=== PATIENT | male | born 1965 | race Caucasian/White ===

== ENCOUNTER 2023-02-17 11:04 | Day surgery (SDC) | payer OTHER ==
[2023-02-17] VITALS (41 sets, daily range): BP systolic 111–182; BP diastolic 73–114
[~2023-02-17] VITALS: Ht 172.7 cm; Wt 60.4 kg
[2023-02-17] MEDS ORDERED: CYCL10 PO (12:40)
[2023-02-17] MEDS ORDERED: GABA300 PO (12:40)
[2023-02-17] MEDS ORDERED: Hair, Skin & N1 EACH PO (12:41)
--- NOTE | 2023-02-17 13:58 | NUR ---
02/17/23 1358 Kathi Galeana HISTORY, CHART, MEDICATIONS AND ALLERGIES REVIEWED BEFORE START OF PROCEDURE. PATIENT CONFIRMS NPO STATUS AND AGREES WITH SCHEDULED PROCEDURE. 3-LEAD EKG REVIEWED WITH PHYSICIAN PRIOR TO START OF PROCEDURE. MONITOR INTACT WITH CONTINUOUS PULSE OXIMETRY,CAPNOGRAPHY, 3-LEAD EKG, INTERMITTENT BP. SUPPLEMENTAL O2 TO BE TITRATED THROUGHOUT PROCEDURE TO MAINTAIN O2 SATURATION ABOVE 90%. PATIENT DETERMINED TO BE ASA APPROPRIATE FOR PROPOFOL SEDATION PRIOR TO START OF PROCEDURE BY
--- NOTE | 2023-02-17 15:30 | NUR ---
PT HAS TAKEN SOMETHING TO DRINK. PT TAKEN TO RADIOLOGY VIA GURNEY.
--- NOTE | 2023-02-17 16:10 | NUR ---
Discharge instructions reviewed with patient. Patient verbalizes understanding. Copy given to patient to take home. IV DC'D INTACT. Patient States Post-Procedure ride home has been arranged. Discharged via wheelchair to private car for ride home.
== END 2023-02-17 16:00 | disposition home or self-care (01) ==
LOC: ORSCMMR 11:04 → ORD 12:15 → ORSCMMR 12:15
DX: K62.5 Hemorrhage of anus and rectum (principal); R19.5 Other fecal abnormalities; R15.9 Full incontinence of feces; R15.2 Fecal urgency; K63.5 Polyp of colon; I10 Essential (primary) hypertension; F41.8 Other specified anxiety disorders; Z79.899 Other long term (current) drug therapy; F17.210 Nicotine dependence, cigarettes, uncomplicated
CPT/HCPCS: 71260; 74177; 88305; J2250; J2704; J7120; Q9967

== ENCOUNTER 2024-01-15 11:15 | Inpatient (IN) | payer OTHER ==
[~2024-01-15] VITALS: Ht 172.7 cm; Wt 62.0 kg
[~2024-01-15 11:15] MED LIST: ACET500 PO; BP MED; CYCL10 PO; GABA300 PO; Hair, Skin & N1 EACH PO; IBUP600 PO; MELO7.5; [UNRECOGNIZED DRUG - REMARK]
[2024-01-15 12:09] LABS: Anion Gap 13 mmol/L (3-11); Blood Urea Nitrogen 13 mg/dL (8-24); Bun/Creatinine Ratio 17.5 (12.0-20.0); CO2, Blood 27 mmol/L (21-32); Calcium, Blood 8.6 mg/dL (8.5-10.1); Chloride, Blood 80 mmol/L (98-108); Creatinine, Blood 0.74 mg/dL (0.60-1.20); Ethanol (Alcohol), Blood, Med <3 mg/dL; Glomerular Filtration Rate 104 (60-); Glucose, Blood 83 mg/dL (70-99); Magnesium, Blood 2.1 mg/dL (1.6-2.4); Potassium, Blood 5.1 mmol/L (3.5-5.5)
[2024-01-15 12:11] LABS: Sodium, Blood 115 mmol/L (136-145)
[2024-01-15 12:30] LABS: Osmolality, Serum 239 mos/KG (275-300)
[2024-01-15 12:39] LABS: Source, Urine Clean Catch
[2024-01-15] MEDS ORDERED: Sodium Chloride 3% 500 ML IV ONE (12:45)
[2024-01-15 12:47] LABS: BASOPHILS ABSOLUTE AUTO 0.05 K/mm3 (0.00-0.23); BASOPHILS PERCENT AUTO 1 % (0-2); EOSINOPHILS ABSOLUTE AUTO 0.03 K/mm3 (0.00-0.68); EOSINOPHILS PERCENT AUTO 0 % (0-6); Hematocrit 40.6 % (37.0-53.0); IMMATURE GRAN PERCENT AUTO 1 % (0-1); LYMPHOCYTES ABSOLUTE AUTO 1.94 K/mm3 (0.84-5.20); LYMPHOCYTES PERCENT AUTO 22 % (21-46); MONOCYTES ABSOLUTE AUTO 1.04 K/mm3 (0.16-1.47); MONOCYTES PERCENT AUTO 12 % (4-13); Mean Corpuscular Volume 88 fL (80-100); Mean Platelet Volume 9.7 fL (9.1-12.4); NEUTROPHILS ABSOLUTE AUTO 5.73 K/mm3 (1.96-9.15); NEUTROPHILS PERCENT AUTO 65 % (41-73); Platelet Count 292 K/mm3 (150-400); RDW Coefficient Variation 11.8 % (11.7-14.2); RDW Standard Deviation 37.7 fL (35.1-46.3); White Blood Cell Count 8.89 K/mm3 (4.00-11.30)
[2024-01-15 12:54] LABS: Appearance, Urine Clear (Clear); Bilirubin, Urine Neg (Neg); Blood, Urine 2+ (Neg); Color, Urine Yellow (P-Yellow); Glucose Qualitative, Urine Neg (Neg); Ketones, Urine 2+ (Neg); Leukocyte Esterase, Urine Neg (Neg); Nitrite, Urine Neg (Neg); Protein, Urine Neg (Neg); Specific Gravity, Urine 1.005 (1.003-1.022); Urobilinogen, Urine NORM (Normal)
[2024-01-15 13:11] LABS: Bacteria Rare /hpf; Squamous Epithelial Cells Not Seen /hpf (Few); White Blood Cells, Urine 0-2 /hpf (0-5)
[2024-01-15 13:43] LABS: Sodium, Urine, Random 41 mmol/L (20-110)
[2024-01-15 14:06] LABS: Osmolality, Urine 185 mos/kg (15-1400)
[2024-01-15] MEDS ORDERED: Ondansetron HCl 2 MG / ML 2ML Vial IV PRN (14:15)
[2024-01-15] MEDS ORDERED: Nicotine 14 MG PATCH TOP PRN (14:15)
[2024-01-15] MEDS ORDERED: Acetaminophen 325 MG TABLET PO PRN (14:15)
[2024-01-15] MEDS ORDERED: LORazepam 2 MG/ML 1ML Injection IV PRN ×3 (15:00→15:05)
[2024-01-15] MEDS ORDERED: ChlordiazePOXIDE 25 MG Cap PO PRN ×2 (15:05)
[2024-01-15 15:48] LABS: Bun/Creatinine Ratio 17.6 (12.0-20.0); Calcium, Blood 8.6 mg/dL (8.5-10.1); Creatinine, Blood 0.85 mg/dL (0.60-1.20); Potassium, Blood 3.8 mmol/L (3.5-5.5)
[2024-01-15] MEDS ORDERED: Sodium Chloride 1 GM TAB PO SCH (16:05)
[2024-01-15 17:09] LABS: Albumin, Blood 3.8 g/dL (3.4-5.0); Anion Gap 10 mmol/L (3-11); Blood Urea Nitrogen 14 mg/dL (8-24); Bun/Creatinine Ratio 16.1 (12.0-20.0); CO2, Blood 29 mmol/L (21-32); Calcium, Blood 8.7 mg/dL (8.5-10.1); Chloride, Blood 83 mmol/L (98-108); Creatinine, Blood 0.87 mg/dL (0.60-1.20); Glomerular Filtration Rate 99 (60-); Glucose, Blood 116 mg/dL (70-99); Phosphorus, Blood 2.6 mg/dL (2.5-4.9); Potassium, Blood 3.9 mmol/L (3.5-5.5); Sodium, Blood 118 mmol/L (136-145)
[2024-01-15 18:10] VITALS: BP 127/91
[2024-01-15] MEDS ORDERED: HYDCHL25 PO (18:20)
[2024-01-15] MEDS ORDERED: Diclofenac Sodi50 MG PO (18:20)
[2024-01-15] MEDS ORDERED: PRAZ1 PO (18:21)
[2024-01-15] MEDS ORDERED: LISI20 PO (18:21)
[2024-01-15] MEDS ORDERED: TAMS.4ER PO (18:21)
[2024-01-15] MEDS ORDERED: TraZODone HCl 50 MG Tab PO PRN (19:00)
--- NOTE | 2024-01-15 19:10 | NUR ---
SHIFT SUMMARY AND ARRIVAL TO UNIT: PATIENT ARRIVED TO THE UNIT AT 1800. PATIENT ALERT AND ORIENTED X4. PATIENT STEADY ON FEET. PATIENT REPORTS SIGNIFICANT LOSS OF WEIGHT AND STRENGTH OVER THE LAST 3 YEARS (REPORTS HE USED TO BE ABOUT 185LBS AND IS NOW 135 LBS PER THE BED WEIGHT). PATIENT'S AT BEDSIDE. SHE IS ENCOURAGING AND HELPFUL WITH THE PATIENT. PATIENT IS CALM AND COOPERATIVE. NO SIGNS OF ALCOHOL WITHDRAWL AT THIS TIME. NEURO: PATIENT REPORTS NUMBNESS/TINGLING IN BUE RELATED TO BACK PROBLEMS HE REPORTS THAT A BACK SURGERY HELPED INITIALLY, BUT IT NO LONGER HAS. PATIENT REPORTS THAT WHILE HE IS ABLE TO PERFORM ALL ADLS HE STRUGGLES AT TIMES. HE REPORTS THAT AT WORK, HE HAS BEEN FORGETFUL AND AT TIMES CANNOT REMEMBER WHAT HE IS SUPPOSED TO BE DOING. PATIENT IS ANSWERING QUESTIONS APPROPRIATELY AND ABLE TO RECALL INFORMATION AT THIS TIME. PATIENT DENIES PAIN, BUT REPORTS THAT HE HAS BEEN EXPERIENCING DISCOMFORT FOR A "LONG TIME", INCLUDING ABDOMINAL AND THORACIC. CARDIAC: PATIENT ON TELEMETRY. PATIENT VITALS STABLE. PATIENT'S HR IN THE HIGH 50S AND LOW 60S. PATIENT DENIES ACUTE CHEST PAIN. GI/: PATIENT REPORTED THAT THE IV ZOFRAN GIVEN IN THE ED HELPED WITH HIS NAUSEA. PATIENT ABLE TO TOLERATE SOME OF HIS DINNER WITHOUT INCREASED NAUSEA. PATIENT REPORTS DECREASE IN APPETITE FOR MONTHS. PATIENT REPORTS GENERALIZED DISRUPTION TO THIS GI SYSTEM. PATIENT REPORTS RETENTION AND URGENCY WITH VOIDING. PATIENT REPORTS THAT HIS URINE HAS BEEN CONCENTRATED. PSYCHSOCIAL: PATIENT AND HIS EXPRESS CONCERN OVERING LOSING THEIR HOUSE (THEY ARE WEEKS BEHIND ON MORTGAGE AND THAT THEIR ELECTRICITY WILL LIKELY BE CUT OFF) AND THE PATIENT LOSING HIS JOB. THEY ARE DOWN TO ONE CAR THEY CANNOT FIX THE OTHER ONE AT THIS TIME. THEY REPORT THAT THEY HAVE FOOD STAMPS AND THAT THIS HAS BEEN HELPING. THEY ARE KIND AND ENCOURAGING OF EACH OTHER. PATIENT CALM AND COOPERATIVE WITH CARE.
[2024-01-15 19:32] VITALS: BP 124/78
--- NOTE | 2024-01-15 21:28 | NUR ---
REPEAT SODIUM LEVEL 121. MD MATOS CONTACTED. RECEIVED ORDER FOR 2G SODIUM CHLORIDE TABLET PO NOW, FOR A 1L FLUID RESTRICTION, AND TO CALL WITH MORNING LAB RESULTS.
[2024-01-15] MEDS ORDERED: Sodium Chloride 1 GM TAB PO ONE (21:30)
[2024-01-15] MEDS ORDERED: Atarax10 MG PO (22:23)
[2024-01-15] MEDS ORDERED: Robaxin750 MG PO (22:24)
[2024-01-15] MEDS ORDERED: OXYC5 PO (22:26)
[2024-01-15] MEDS ORDERED: TIZA4 PO (22:26)
[2024-01-15 23:20] VITALS: BP 135/82
[2024-01-16 03:00] VITALS: BP 152/71
[2024-01-16 04:04] LABS: BASOPHILS ABSOLUTE AUTO 0.05 K/mm3 (0.00-0.23); BASOPHILS PERCENT AUTO 1 % (0-2); EOSINOPHILS ABSOLUTE AUTO 0.07 K/mm3 (0.00-0.68); EOSINOPHILS PERCENT AUTO 1 % (0-6); Hematocrit 40.7 % (37.0-53.0); Hemoglobin 14.7 g/dL (13.5-17.5); IMMATURE GRAN ABSOLUTE AUTO 0.08 K/mm3 (0.00-0.10); IMMATURE GRAN PERCENT AUTO 1 % (0-1); LYMPHOCYTES ABSOLUTE AUTO 2.09 K/mm3 (0.84-5.20); LYMPHOCYTES PERCENT AUTO 29 % (21-46); MONOCYTES PERCENT AUTO 11 % (4-13); Mean Corpuscular HGB 33.4 pg (26.0-34.0); Mean Corpuscular HGB Conc 36.1 g/dL (31.5-36.5); NEUTROPHILS PERCENT AUTO 58 % (41-73); Platelet Count 276 K/mm3 (150-400); RDW Coefficient Variation 11.9 % (11.7-14.2); RDW Standard Deviation 40.1 fL (35.1-46.3); White Blood Cell Count 7.29 K/mm3 (4.00-11.30)
[2024-01-16 04:06] LABS: Mean Corpuscular Volume 93 fL (80-100)
[2024-01-16 04:35] LABS: Albumin, Blood 3.8 g/dL (3.4-5.0); Anion Gap 11 mmol/L (3-11); Blood Urea Nitrogen 14 mg/dL (8-24); Bun/Creatinine Ratio 14.7 (12.0-20.0); CO2, Blood 29 mmol/L (21-32); Calcium, Blood 8.5 mg/dL (8.5-10.1); Chloride, Blood 88 mmol/L (98-108); Creatinine, Blood 0.95 mg/dL (0.60-1.20); Glomerular Filtration Rate 92 (60-); Glucose, Blood 99 mg/dL (70-99); Magnesium, Blood 2.2 mg/dL (1.6-2.4); Sodium, Blood 124 mmol/L (136-145); Uric Acid, Blood 5.5 mg/dL (3.5-7.2)
--- NOTE | 2024-01-16 04:52 | NUR ---
SHIFT SUMMARY THIS RN ASSUMED CARE AT APPROX 1915. PATIENT ALERT AND ORIENTED X4. COMMUNICATES NEEDS EFFECTIVELY. SLEPT T/O SHIFT FOLLOWING ADMINISTRATION OF PO TRAZADONE FOR REPORTED NIGHTMARES, INSOMNIA AT HOME. EASILY AROUSABLE WITH VERBAL STIMULI. REPORTS DRINKING X4 GLASSES OF WHISKEY PER DAY, LAST DRINK 01/14/24. CIWA PROTOCOL IN PLACE, CIWA <8 T/O NIGHT. VSS. TELEMETRY SHOWING SINUS THELMA 50s-60s WITH OCCASIONAL DECREASES TO 40s. DENIES CHEST PAIN, PRESSURE. ON ROOM AIR, SATs >90%. RESPIRATIONS EVEN, UNLABORED. DENIES N/V. SODIUM INCREASE TO 124 THIS MORNING, MD MATOS NOTIFIED OF MORNING LABS. INDEPENDENT WITH ADLs. CALL LIGHT IN REACH. WILL CONTINUE TO MONITOR AND REPORT TO ONCOMING RN.
[2024-01-16] MEDS ORDERED: Omeprazole 20 MG CapCR PO SCH (06:00)
[2024-01-16 07:25] VITALS: BP 141/89
--- NOTE | 2024-01-16 08:08 | NUR ---
Pt is sitting up in bed, wide awake, alert and oriented. States independent in the room to walk to bathroom, etc. 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 States dizzyness/nausea episodes have been daily for about a year. Eating breakfast, took oral meds without difficulty.
[2024-01-16] MEDS ORDERED: Thiamine HCl 100 MG Tab PO SCH (09:00)
[2024-01-16] MEDS ORDERED: Enoxaparin 40 MG/0.4 ML SYR SC SCH (09:00)
[2024-01-16] MEDS ORDERED: Folic Acid 1 MG TAB PO SCH (09:00)
[2024-01-16 10:21] LABS: Potassium, Blood 3.9 mmol/L (3.5-5.5)
[2024-01-16] MEDS ORDERED: Sodium Chloride 1 GM TAB PO ONE (11:00)
--- NOTE | 2024-01-16 13:45 | NUR ---
Patient is lying in bed and alert. He talks at length about his medical issues and he and his 's fears. 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 He also shares about his many near experiences and his his gratitude for life and living. I normalized his experience, and provided therapeutic listening and prayer. Patient responded well and showed signs of reduced stress. I will continue to remain available.
[2024-01-16] MEDS ORDERED: Calcium Carbonate 500 MG Tab Chew PO PRN (14:25)
[2024-01-16 16:33] VITALS: BP 145/92
--- NOTE | 2024-01-16 17:05 | NUR ---
Pt asking about his low sodium levels. Given some patient education materials to read. Discussed with him the current treatment plan.
[2024-01-16 19:39] VITALS: BP 144/91
--- NOTE | 2024-01-16 20:37 | NUR ---
REPEAT SODIUM 128. MD MATOS CONTACTED WITH RESULT. NO NEW ORDERS RECEIVED AT THIS TIME.
--- NOTE | 2024-01-16 20:58 | NUR ---
REPORT GIVEN TO KEHINDE MEDEIROS TO ASSUME CARE ON MEDICAL FLOOR.
[2024-01-17 03:04] VITALS: BP 113/80
[2024-01-17 06:01] LABS: BASOPHILS ABSOLUTE AUTO 0.05 K/mm3 (0.00-0.23); BASOPHILS PERCENT AUTO 1 % (0-2); EOSINOPHILS ABSOLUTE AUTO 0.05 K/mm3 (0.00-0.68); EOSINOPHILS PERCENT AUTO 1 % (0-6); Hematocrit 40.1 % (37.0-53.0); Hemoglobin 14.2 g/dL (13.5-17.5); IMMATURE GRAN ABSOLUTE AUTO 0.06 K/mm3 (0.00-0.10); IMMATURE GRAN PERCENT AUTO 1 % (0-1); LYMPHOCYTES ABSOLUTE AUTO 2.14 K/mm3 (0.84-5.20); LYMPHOCYTES PERCENT AUTO 30 % (21-46); MONOCYTES ABSOLUTE AUTO 0.88 K/mm3 (0.16-1.47); MONOCYTES PERCENT AUTO 12 % (4-13); Mean Corpuscular HGB 33.1 pg (26.0-34.0); Mean Corpuscular HGB Conc 35.4 g/dL (31.5-36.5); Mean Corpuscular Volume 94 fL (80-100); Mean Platelet Volume 8.9 fL (9.1-12.4); NEUTROPHILS ABSOLUTE AUTO 3.92 K/mm3 (1.96-9.15); NEUTROPHILS PERCENT AUTO 55 % (41-73); Platelet Count 239 K/mm3 (150-400); RDW Coefficient Variation 11.9 % (11.7-14.2); RDW Standard Deviation 41.1 fL (35.1-46.3); Red Blood Cell Count 4.29 M/mm3 (4.30-5.90)
--- NOTE | 2024-01-17 06:30 | NUR ---
T/F AND SUMMARY: REPORT RECEIVED FROM INGRID (SALON/SPA MANAGER) AND PT T/F TO ROOM 331 AT 2107. THIS RN AGREES TO PCU SHIFT ASSESSMENT FINDINGS. HE'S A/OX4, INDEPENDENT IN ROOM AND CALLS APPROPRIATELY TO SPECIFY NEEDS. 1L FREE WATER RESTRICTION MAINTAINED. NA TRENDING UPWARD, NOW 128 AND AM LABS STILL PENDING. TRAZODONE PROVIDED PRN PER PT REQUEST. VSS/AFEBRILE AND NO ACUTE CHANGES. POSSIBLE D/C TODAY. WCTM AND REPORT TO DAY RN.
[2024-01-17 06:36] LABS: Albumin, Blood 3.9 g/dL (3.4-5.0); Anion Gap 10 mmol/L (3-11); Blood Urea Nitrogen 12 mg/dL (8-24); Bun/Creatinine Ratio 13.7 (12.0-20.0); CO2, Blood 29 mmol/L (21-32); Calcium, Blood 8.9 mg/dL (8.5-10.1); Chloride, Blood 93 mmol/L (98-108); Creatinine, Blood 0.88 mg/dL (0.60-1.20); Glomerular Filtration Rate 99 (60-); Glucose, Blood 95 mg/dL (70-99); Magnesium, Blood 2.3 mg/dL (1.6-2.4); Phosphorus, Blood 3.4 mg/dL (2.5-4.9); Potassium, Blood 3.7 mmol/L (3.5-5.5); Sodium, Blood 128 mmol/L (136-145)
[2024-01-17] MEDS ORDERED: Acetaminophen650 M1 PO (11:30)
[2024-01-17] MEDS ORDERED: Nicoderm Cq1 EAC1 TOP (11:34)
[2024-01-17] MEDS ORDERED: OMEP20ER PO (11:35)
[2024-01-17] MEDS ORDERED: SODCHL1 PO (11:35)
--- NOTE | 2024-01-17 13:13 | NUR ---
Because therapeutic alliance is already established in a prior visit, Patient immediately shares about the horrors of war. He is very tearful at times as he relives the deaths of follow soldiers and the torture that he endured. He talks about his struggles to put the pieces of his thoughts back together and make sense of the the things he has seen and experienced. He also tells me about the fears that he has due to his recent medical symptoms and abnormal labs. He fears these things point to cancer and voices his desire to have further testing done just so he could calm his mind by rulling cancer out. We explore ways to manage his thoughts and fears. I listened empathically and provided anxiety containment, spiritual guidance, gentle international student counselor, and prayer. Patient responded well and showed signs of reduced stress.
--- NOTE | 2024-01-17 14:05 | NUR ---
PATIENT DISCHARGE: PATIENT DISCHARGED TO HOME THIS SHIFT. MEDICATION RECONCILIATION COMPLETED; MED LIST FAXED TO [facility]. DISCHARGE EDUCATION COMPLETED WITH PATIENT. PATIENT TRANSPORTED TO EXIT BY [facility] STAFF WITH WHEELCHAIR AT 1340. PATIENT DEPARTED [facility] VIA PRIVATE AUTO.
== END 2024-01-17 13:31 | disposition home or self-care (01) | DRG 645 ==
LOC: ER 11:15 → PCU 11:16 → MEDS 14:16 → PCU 14:16 → MEDS 01-16 21:05 → ENPENDDIS 01-17 12:53 → MEDS 01-17 13:31
PROVIDERS: Emergency Medicine; Internal Medicine Nephrology; ADMIT Family Medicine
DX: E22.2 Syndrome of inappropriate secretion of antidiuretic hormone (principal); F10.10 Alcohol abuse, uncomplicated; F17.210 Nicotine dependence, cigarettes, uncomplicated; K21.9 Gastro-esophageal reflux disease without esophagitis; E86.0 Dehydration; I12.9 Hypertensive chronic kidney disease with stage 1 through stage 4 chronic kidney disease, or unspecified chronic kidney disease; N18.1 Chronic kidney disease, stage 1; D64.9 Anemia, unspecified; R31.9 Hematuria, unspecified; Z98.890 Other specified postprocedural states; Z79.899 Other long term (current) drug therapy
CPT/HCPCS: 36415; 71045; 80048; 80069; 81001; 82533; 83690; 83735; 83930; 83935; 84132; 84295; 84300; 84443; 84550; 85025; 93005; 93010; 99285-25; A9270; G0378; J1650; J2405